=== PATIENT | male | born 1985 | race African-American/Black ===

== ENCOUNTER 2017-05-13 21:04 | Emergency (ER) | payer SELFPAY | END 2017-05-13 21:52 | disposition home or self-care (01) | LOC: ERS 21:04 | DX: L42 Pityriasis rosea (principal); L30.9 Dermatitis, unspecified; F17.210 Nicotine dependence, cigarettes, uncomplicated; Z71.6 Tobacco abuse counseling | CPT/HCPCS: 99406 ==

== ENCOUNTER 2017-07-01 18:05 | Emergency (ER) | payer SELFPAY ==
[2017-07-01] MEDS ORDERED: hydrOXYzine 25 MG TAB ONE (19:33)
[2017-07-01] MEDS ORDERED: predniSONE 20 MG TAB ONE (19:33)
== END 2017-07-01 19:37 | disposition home or self-care (01) ==
LOC: ERS 18:05
DX: L30.9 Dermatitis, unspecified (principal); F17.210 Nicotine dependence, cigarettes, uncomplicated
CPT/HCPCS: 99406; J7506

== ENCOUNTER 2017-10-17 15:41 | Emergency (ER) | payer SELFPAY | END 2017-10-17 16:55 | disposition home or self-care (01) | LOC: ERS 15:41 | DX: L30.9 Dermatitis, unspecified (principal); F17.210 Nicotine dependence, cigarettes, uncomplicated | CPT/HCPCS: 99282 ==

== ENCOUNTER 2018-10-29 10:12 | Emergency (ER) | payer SELFPAY ==
[2018-10-29] MEDS ORDERED: Dexamethasone 10 MG/ML VIAL ONE (10:35)
== END 2018-10-29 10:45 | disposition home or self-care (01) ==
LOC: ERS 10:12
DX: L30.9 Dermatitis, unspecified (principal); F17.210 Nicotine dependence, cigarettes, uncomplicated
CPT/HCPCS: J1100

== ENCOUNTER 2019-10-11 10:46 | Observation (INO) | payer SELFPAY ==
[2019-10-11] MEDS ORDERED: Adacel (T-DAP) 0.5 ML SYRINGE ONE (10:52)
[2019-10-11] MEDS ORDERED: Fentanyl 100 MCG/2 ML VIAL ONE (10:52)
--- NOTE | 2019-10-11 11:06 | RAD ---
Exam: Chest one view HISTORY:Trauma. Pain. Comparison: None FINDINGS: Cardiac silhouette: Normal Aorta: Unremarkable Pulmonary vessels: Normal Costophrenic angles: Clear LUNGS: No masses or consolidation. Pneumothorax: No pneumothorax on this supine projection. Osseous abnormalities: None IMPRESSION: No acute cardiopulmonary process.
[2019-10-11 11:08] LABS: #Basophils 0.1 thou/uL (0.0-0.2); #Eosinphils 0.4 thou/uL (0.0-0.7); #Lymphocytes 2.5 thou/uL (1.20-3.40); #Monocytes 0.6 thou/uL (0.11-0.59); #Neutrophils 4.8 thou/uL (1.40-6.50); %Basophils 1.1 % (0.0-1.0); %Eosinophils 4.5 % (0.0-10.0); %Lymphocytes 29.5 % (21.0-51.0); %Monocytes 6.6 % (0.0-10.0); %Neutrophils 58.2 % (42.0-75.0); Hemoglobin 14.7 g/dL (14.0-18.0); Mean Corpuscular Hemoglobin 28.8 pg (27.0-31.0); Mean Corpuscular Volume 87.2 fL (78.0-98.0); Mean Platelet Volume 8.3 fL (7.4-10.4); Platelet Count 219 thou/uL (130-400); RBC Distribution Width 12.9 % (11.5-14.5); White Blood Cell (WBC) Count 8.3 thou/uL (4.8-10.8)
[2019-10-11 11:11] LABS: INR-International Normal Ratio 1.1; PTT 26.4 sec (22.9-36.1); Prothrombin Time 13.8 sec (12.0-14.7)
[2019-10-11 11:27] LABS: ALT (SGPT) 209 U/L (8-55); AST (SGOT) 289 U/L (5-34); Albumin 4.4 g/dL (3.5-5.0); Alkaline Phosphatase 52 U/L (40-110); Anion Gap 25 mmol/L (10-20); BUN (Urea Nitrogen) 15 mg/dL (8.9-20.6); Bilirubin, Total 0.7 mg/dL (0.2-1.2); Calc. Creatinine Clearance 0 mL/min (70-130); Calcium 9.3 mg/dL (7.8-10.44); Carbon Dioxide 10 mmol/L (22-29); Chloride 107 mmol/L (98-107); Estimated GFR-MDRD 88; Globulin 3.2 g/dL (2.4-3.5); Glucose 67 mg/dL (70-105); Lipase 18 U/L (8-78); Potassium 3.6 mmol/L (3.5-5.1); Protein, Total 7.6 g/dL (6.0-8.3); Sodium 138 mmol/L (136-145)
--- NOTE | 2019-10-11 11:50 | CT ---
CHEST CT WITH CONTRAST ABDOMEN CT WITH CONTRAST PELVIC CT WITH CONTRAST LIMITED CT OF THE THORACIC AND LUMBAR SPINE: HISTORY: Left-sided puncture. Pain. Difficulty breathing. Correlation: None. COMPARISON: None. FINDINGS: Chest CT: Mediastinum: No mass, lymphadenopathy or hematoma. Aorta: Thoracic aorta and abdominal aorta have a normal caliber. No periaortic fat stranding. Heart: Normal heart size. No pericardial effusion. Trachea and central bronchi: Patent. Pleural spaces: No pleural effusion. Right lung: No mass, consolidation or contusion. Left lung:No mass, consolidation or contusion. Pneumothorax: None. Abdomen CT: Gallbladder: Unremarkable. Portal vein: Patent. Liver: Mild hypoattenuation suggesting hepatic steatosis. No enhancing masses.. Spleen: Appropriate enhancement. Pancreas: Appropriate enhancement. Adrenal glands: Appropriate enhancement. Lymphadenopathy: No gastrohepatic, retrocrural or periportal lymphadenopathy. Kidneys: Symmetric enhancement. Bilaterally no obstructive uropathy. Mesentery: No mass, lymphadenopathy, free air or free fluid. Alimentary canal: Limited evaluation by the lack of oral contrast. No evidence of a bowel obstruction . Normal caliber appendix. There is mild stranding of the fat along the descending colon with slightly hyperdense fluid noted in the left pericolic gutter. Obvious bowel injury, pneumatosis or ex traluminal air is not appreciated. Abdominal wall: There is subcutaneous emphysema along the anterior left chest tracking into the left flank. There is a soft tissue hematoma involving the lateral aspect of the left abdomen, measuring at least 3.5 x 3.0 cm. Hematoma extends into the abdominal cavity and pushes upon the peritoneum. Hem atoma does appear to abut the descending colon. A small amount of probable blood is noted in the left paracolic gutter and has been described above. There is hyperdensity in the a forementioned adarsh nia suggesting active extravasation of contrast likely from a vascular injury. Extravasated contrast measures 1.4 x [address]: No mass, nephropathy or free air or free fluid. Urinary bladder has a normal mucosal appearance. Osseous structures:Sternal, clavicle, ribs and pelvis are intact. No fracture. Limited CT of the thoracic lumbar spine: No fractures or malalignment. IMPRESSION: 1. Posttraumatic changes along the left flank. There is an associated soft tissue hematoma, subcutane ous emphysema and hyperdensity suggesting extravasation of contrast due to an active bleed. 2. Hematoma appears to extend into the abdominal cavity and may deflect the peritoneum. Hematoma abut s the descending colon without obvious injury to the colon. A small amount of hematoma and blood is noted in the left flank. 3. Results of study discussed with Dr. Pearl 10/11/2019 11:47 AM. Code CR Transcribed Date/Time: 10/11/2019 12:34 PM
[2019-10-11 12:28] LABS: Bilirubin Negative (Negative); Blood, Urine Negative (Negative); Clarity Clear (Clear); Glucose, Urine (Dipstick) Normal (Negative); Leukocyte Negative Leu/uL (Negative); Nitrite Negative (Negative); Protein, Urine (Dipstick) 10 mg/dL (Neg-Trace); Urobilinogen Normal mg/dL (Less than 2)
[2019-10-11] MEDS ORDERED: Iopamidol-370 76% 500 ML 1 ML ONE (12:42)
[2019-10-11] MEDS ORDERED: traMADol HCl 50 MG TAB PO PRN ×2 (14:20)
[2019-10-11] MEDS ORDERED: Ondansetron ODT 4 MG TAB PO PRN (14:20)
[2019-10-11] MEDS ORDERED: Ondansetron PF 4 MG/2 ML Vial IVP PRN (14:20)
[2019-10-11] MEDS ORDERED: Dextrose 50% Abboject 50 ML SYRINGE SLOW IVP PRN (14:20)
[2019-10-11] MEDS ORDERED: hydrALAZINE 20 MG/ML VIAL SLOW IVP PRN (14:20)
[2019-10-11] MEDS ORDERED: Acetaminophen 500 MG TAB PO SCH (14:20)
[2019-10-11] MEDS ORDERED: Dextrose 5% in Water 1,000 ML IV PRN (14:20)
[2019-10-11] MEDS ORDERED: Cyclobenzaprine 10 MG TAB PO PRN (14:20)
[2019-10-11 14:57] LABS: Hemoglobin 14.3 g/dL (14.0-18.0)
[2019-10-11] MEDS ORDERED: Acetaminophen 325 MG TAB PO SCH (15:00)
[2019-10-11 15:56] VITALS: BMI 20.7
[2019-10-11] MEDS: Sodium Chloride 0.9% 1,000 ML IV SCH (16:37)
[2019-10-11] MEDS: Ibuprofen 800 MG TAB PO SCH ×2 (16:38→21:24)
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
[2019-10-11 20:15] LABS: Hemoglobin 13.5 g/dL (14.0-18.0)
[2019-10-11] MEDS: Famotidine 20 MG TAB PO SCH (21:24)
[2019-10-11] MEDS: Senokot S 8.6-50 MG TAB PO SCH (21:28)
[2019-10-12] MEDS: Sodium Chloride 0.9% 1,000 ML IV SCH (00:45)
[2019-10-12 02:34] LABS: #Eosinphils 0.2 thou/uL (0.0-0.7); #Lymphocytes 1.5 thou/uL (1.20-3.40); #Monocytes 0.7 thou/uL (0.11-0.59); #Neutrophils 11.9 thou/uL (1.40-6.50); %Basophils 0.1 % (0.0-1.0); %Eosinophils 1.3 % (0.0-10.0); %Lymphocytes 10.2 % (21.0-51.0); %Monocytes 4.9 % (0.0-10.0); %Neutrophils 83.6 % (42.0-75.0); Hemoglobin 12.9 g/dL (14.0-18.0); Mean Corpuscular HGB CONC 34.2 g/dL (32.0-36.0); Mean Corpuscular Hemoglobin 29.4 pg (27.0-31.0); Mean Corpuscular Volume 86.1 fL (78.0-98.0); Mean Platelet Volume 7.7 fL (7.4-10.4); Platelet Count 192 thou/uL (130-400); RBC Distribution Width 12.8 % (11.5-14.5); Red Blood Cell (RBC) Count 4.37 mill/uL (4.70-6.10); White Blood Cell (WBC) Count 14.3 thou/uL (4.8-10.8)
[2019-10-12 03:05] LABS: Anion Gap 11 mmol/L (10-20); BUN (Urea Nitrogen) 11 mg/dL (8.9-20.6); Calc. Creatinine Clearance 112 mL/min (70-130); Calcium 8.3 mg/dL (7.8-10.44); Carbon Dioxide 24 mmol/L (22-29); Chloride 107 mmol/L (98-107); Estimated GFR-MDRD Greater than 90; Glucose 86 mg/dL (70-105); Potassium 3.9 mmol/L (3.5-5.1); Sodium 138 mmol/L (136-145)
[2019-10-12] MEDS: Ibuprofen 800 MG TAB PO SCH ×2 (05:19→15:08)
[2019-10-12] MEDS: Famotidine 20 MG TAB PO SCH (08:36)
[2019-10-12] MEDS: Senokot S 8.6-50 MG TAB PO SCH (08:36)
[2019-10-12] MEDS ORDERED: Polyethylene Glycol 3350 17 GM Packet PO SCH (09:00)
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
[2019-10-12 15:43] VITALS: BP 96/57; TEMP 98.2
== END 2019-10-12 19:15 | disposition home or self-care (01) ==
LOC: ERS 10:46 → SURG B 12:26
PROVIDERS: ADMIT Surgery; ATTEND Surgery
DX: S31.139A Puncture wound of abdominal wall without foreign body, unspecified quadrant without penetration into peritoneal cavity, initial encounter (principal); G89.11 Acute pain due to trauma; F17.210 Nicotine dependence, cigarettes, uncomplicated; W18.30XA Fall on same level, unspecified, initial encounter
CPT/HCPCS: 36415; 71045; 71260; 74177; 80048; 80053; 81003; 83690; 84484; 85025; 85610; 85730; 86850; 86900; 86901; 90471; 90715; 93005; 96361; 96365; 96375; G0378; J0690; J3010; Q9967

== ENCOUNTER 2021-07-14 22:12 | Emergency (ER) | payer SELFPAY | END 2021-07-15 00:37 | disposition home or self-care (01) | LOC: ERS 22:12 | DX: L30.9 Dermatitis, unspecified (principal); F17.210 Nicotine dependence, cigarettes, uncomplicated | CPT/HCPCS: 99282 ==

== ENCOUNTER 2021-10-04 16:52 | Emergency (ER) | payer SELFPAY | END 2021-10-04 19:17 | disposition home or self-care (01) | LOC: ERS 16:52 | DX: S62.337A Displaced fracture of neck of fifth metacarpal bone, left hand, initial encounter for closed fracture (principal); W23.0XXA Caught, crushed, jammed, or pinched between moving objects, initial encounter | CPT/HCPCS: 29125 ==

== ENCOUNTER 2021-12-08 01:07 | Emergency (ER) | payer SELFPAY | END 2021-12-08 01:56 | LOC: ERS 01:07 | DX: M79.642 Pain in left hand (principal); S62.337D Displaced fracture of neck of fifth metacarpal bone, left hand, subsequent encounter for fracture with routine healing; X58.XXXD Exposure to other specified factors, subsequent encounter ==

== ENCOUNTER 2025-02-18 13:21 | Outpatient (CLI) | payer OTHER | END 2025-02-18 13:22 | disposition home or self-care (01) | LOC: ULT 13:21 | PROVIDERS: ATTEND Student in an Organized Health Care Education/Training Program | DX: R59.1 Generalized enlarged lymph nodes (principal); L72.0 Epidermal cyst | CPT/HCPCS: 76536; 76999 ==